=== PATIENT | male | born 1970 | race Caucasian/White ===

== ENCOUNTER 2025-10-21 20:39 | Emergency (ER) | payer BC ==
[~2025-10-21] VITALS: Ht 180.3 cm; Wt 117.9 kg
[2025-10-21 21:21] VITALS: BP 118/73
[2025-10-21 22:04] LABS: *BILIRUBIN,URIN NEGATIVE (NEGATIVE); *BLOOD, URINE TRACE (NEGATIVE); *CLARITY,URINE CLEAR (CLEAR); *COLOR,URINE YELLOW (YELLOW); *KETONES,URINE TRACE (NEGATIVE); *PROTEIN,URINE NEGATIVE (NEGATIVE); *UROBILINOGEN,URINE 1.0 E.U./dl (NORMAL); LEUKOCYTE ESTERASE ,URINE NEGATIVE (NEGATIVE); NITRITE, URINE NEGATIVE (NEGATIVE); UGLUCOSE NEGATIVE (NEGATIVE)
[2025-10-21 22:10] LABS: PLATELET COUNT (AUTO) 267 K/uL (152-348); RED BLOOD CELL COUNT(AUTO) 4.33 MIL/uL (4.06-5.63); RED CELL DISTRIBUTION WIDTH 14.2 % (12.1-16.2); WHITE BLOOD COUNT (AUTO) 7.5 K/uL (3.6-10.2)
[2025-10-21 22:12] LABS: SQUAMOUS EPITHELIAL CELL,UR FEW /HPF (NONE SEEN)
[2025-10-21 22:15] LABS: CREATININE 1.0 mg/dL (0.6-1.3); SODIUM SERUM 142.0 mmol/L (136-145); UREA NITROGEN, BLOOD 19.0 mg/dL (7-18)
[2025-10-21] MEDS ORDERED: LEVO-43 PO (23:51)
[2025-10-21] MEDS: IV NORMAL SALINE 1000 ML BAG IV ONE (23:57)
[2025-10-22] MEDS ORDERED: METR-147 PO (01:48)
[2025-10-22 02:09] VITALS: BP 120/75; TEMP 98.2; O2SAT 98
== END 2025-10-22 02:10 | disposition home or self-care (01) ==
LOC: ER 20:43
DX: N39.0 Urinary tract infection, site not specified (principal); K57.92 Diverticulitis of intestine, part unspecified, without perforation or abscess without bleeding; I10 Essential (primary) hypertension; E11.9 Type 2 diabetes mellitus without complications; K57.32 Diverticulitis of large intestine without perforation or abscess without bleeding
CPT/HCPCS: 99284; 74176; 80048; 81001; 85025; 87086; 36415; J7040; A4606; A4663